=== PATIENT | male | born 1985 | race Two or more races ===

== ENCOUNTER → 2017-08-03 | Outpatient (REF) | payer OTHER | LOC: M SMT 16:57 | PROVIDERS: ATTEND Nurse Practitioner Women's Health | DX: R32 Unspecified urinary incontinence (principal) ==

== ENCOUNTER → 2017-08-18 | Outpatient (REF) ==
--- NOTE | 2017-08-19 07:22 | REP ---
LUMBOSACRAL SPINE: CLINICAL HISTORY: Pain and disability. TECHNIQUE: AP lateral and coned-down views of the lumbosacral spine. FINDINGS: Straightening of the normal lordosis may be secondary to positioning versus pain/spasm. Mild degenerative changes include endplate sclerosis and disc space narrowing. Findings are most apparent at the L5-S1 level and to a lesser extent, the L3-4 and L4-5 levels. No acute fracture, compression injury, or subluxation. Presumed ventriculoperitoneal shunt extends into the pelvis. IMPRESSION: Straightening of the normal lordosis and mild degenerative changes as noted above. Signed by Adair Cortes MD 08/24/2017 12:02 A
== END ==
LOC: M SMT 09:52
PROVIDERS: ATTEND Internal Medicine
DX: Z02.71 Encounter for disability determination (principal)

== ENCOUNTER → 2021-07-03 | Outpatient (REF) ==
--- NOTE | 2021-07-04 05:57 | REP ---
INDICATION: PAIN. COMPARISON: None. TECHNIQUE: AP view of the pelvis with neutral and frog-lateral views of the right and left hip. FINDINGS: There is no evidence for acute fracture or dislocation. Symmetric moderate degenerative changes at the bilateral hip joints includes increased sclerosis to the acetabular roof with marginal spurring and associated joint space narrowing. No significant periarticular calcifications or loose bodies are identified. 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 <Electronically signed by Adair Cortes > 07/04/21 0505
== END ==
LOC: M PLAIMG 11:24
PROVIDERS: ATTEND Internal Medicine
DX: Z00.00 Encounter for general adult medical examination without abnormal findings (principal)